=== PATIENT | female | born 1975 | race Caucasian/White ===

== ENCOUNTER → 2017-03-26 | Outpatient (CLI) | payer BC | LOC: MC.RAD 13:00 | DX: Z12.31 Encounter for screening mammogram for malignant neoplasm of breast (principal) ==

== ENCOUNTER → 2020-06-20 | Outpatient (CLI) | payer BC ==
[~2020-06-20] MED LIST: ANTIVERT 25MG25 MG PO; VITAMINC500CH; VITAMIND3 5000 PO
== END ==
LOC: MC.RAD 15:55
DX: Z12.31 Encounter for screening mammogram for malignant neoplasm of breast (principal)

== ENCOUNTER 2020-11-28 15:58 | Emergency (ER) | payer BC ==
[~2020-11-28] VITALS: Ht 177.8 cm; Wt 63.6 kg
[2020-11-28 16:03] VITALS: TEMP 97.8
[2020-11-28] MEDS ORDERED: ANTIVERT 25MG25 MG PO (16:26)
[2020-11-28] MEDS ORDERED: VITAMINC500CH (16:27)
[2020-11-28] MEDS ORDERED: VITAMIND3 5000 PO (16:27)
[2020-11-28 17:16] LABS: BASO # 0.1 (0.0-0.2); BASO % 0.6 % (0.0-2.0); EOS # 0.1 (0.0-0.7); EOS % 1.6 % (0-4.0); GRAN # 6.6 (1.4-6.5); GRAN % 74.7 % (42.2-75.2); HEMATOCRIT 41.5 % (37.0-47.0); HEMOGLOBIN 13.3 g/dl (12.5-16.0); LYMPH # 1.5 (1.2-3.4); LYMPH % 16.5 % (20.0-51.0); MEAN CELL VOLUME 93 fl (80.0-100.0); MEAN CORPUSCULAR HEMOGLOBIN 30 pg (27.0-31.0); MEAN CORPUSCULAR HGB CONC 32 g/dl (33.0-37.0); MONO # 0.6 (0.1-0.6); MONO % 6.3 % (1.7-9.3); PLATELET COUNT 202 K/mm3 (130-400); RED BLOOD COUNT 4.47 M/mm3 (4.10-5.30); REDCELL DISTRIBUTION WIDTH-CV 13.1 % (11.5-14.5)
[2020-11-28 17:19] LABS: ALANINE AMINOTRANSFERASE 11 U/L (4-34); ALBUMIN 4.2 gm/dL (3.5-5.0); ALKALINE PHOSPHATASE 84 U/L (50-136); ANION GAP 8 mmol/L (7-16); AST,SGOT 24 U/L (15-37); BILIRUBIN,TOTAL 0.4 mg/dL (0.0-1.0); BLOOD UREA NITROGEN 16 mg/dL (7-17); CALCIUM 9.1 mg/dL (8.4-10.2); CARBON DIOXIDE 25 mmol/L (22-30); CHLORIDE 102 mmol/L (98-107); CREATININE, serum 0.65 (0.52-1.25); GLUCOSE 123 mg/dL (74-106); POTASSIUM 4.2 mmol/L (3.4-5.0); SODIUM 135 mmol/L (137-145); TOTAL PROTEIN 7.6 gm/dL (6.4-8.2)
[2020-11-28 17:34] LABS: TROPONIN-I < 0.012 ng/mL (0.000-0.035)
[2020-11-28 17:56] LABS: C-REACTIVE PROTEIN 0.7 mg/dL (0.0-0.9)
[2020-11-28 18:27] VITALS: BP 125/76; PULSE 60
== END 2020-11-28 18:30 | disposition home or self-care (01) ==
LOC: COL.ER 15:58
PROVIDERS: Nurse Practitioner
DX: R55 Syncope and collapse (principal)
CPT/HCPCS: J7030

== ENCOUNTER → 2021-08-09 | Outpatient (CLI) | payer BC | LOC: MC.RAD 15:54 | DX: Z12.31 Encounter for screening mammogram for malignant neoplasm of breast (principal) ==

== ENCOUNTER → 2023-08-14 | Outpatient (CLI) | payer BC | LOC: MC.RAD 15:36 | DX: Z12.31 Encounter for screening mammogram for malignant neoplasm of breast (principal) ==